=== PATIENT | male | born 1950 | race Two or more races ===

== ENCOUNTER 2019-12-25 06:43 | Emergency (ER) | payer OTHER ==
[2019-12-25] MEDS ORDERED: SODIUM CHLORIDE 1,000 ML IV SCH (07:00)
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
[2019-12-25 07:16] VITALS: BP 137/67; PULSE 84; TEMP 98; BMI 35.5
--- NOTE | 2019-12-25 07:16 | PDOC ---
History of Present Illness - General Stated Complaint: FEVER Time Seen by Provider: 12/25/19 07:14 History Source: Patient Exam Limitations: No Limitations - History of Present Illness Initial Comments: 12/25/19 08:13 69M with PMH of DM, HTN, and kidney stones presents to the ED with diarrhea of a few days. He reports fevers/chills, nausea w/o vomiting, and lower abdominal pain that's intermittent. He was seen at [place] [facility], and right sided colitis was suggested by abdominal CT scan. He was subsequently started on metronidazole and cipro. Denies cp, sob, hematochezia, melena, dysuria. PMH: as in HPI SH: see below Meds: see med list Allergies: NKDA Tob/Etoh/Rec drugs: neg x3 PCP: Dr. Ramone MENDOZA GENERAL/CONSTITUTIONAL: +fever/chills. No weakness. HEENT: No change in vision. No ear pain or discharge. No sore throat. CARDIOVASCULAR: No chest pain or shortness of breath RESPIRATORY: No cough, wheezing, or hemoptysis. GASTROINTESTINAL: +nausea, no vomiting, + diarrhea GENITOURINARY: No dysuria, frequency, or change in urination. MUSCULOSKELETAL: No joint or muscle swelling or pain. No neck or back pain. SKIN: No rash NEUROLOGIC: No headache, vertigo, loss of consciousness, or change in strength/sensation. ENDOCRINE: No increased thirst. No abnormal weight change HEMATOLOGIC/LYMPHATIC: No anemia, easy bleeding, or history of blood clots. ALLERGIC/IMMUNOLOGIC: No hives or skin allergy. PE GENERAL: Awake, alert, and fully oriented; no acute distress HEAD: No signs of trauma, normocephalic, atraumatic EYES: PERRLA, EOMI, sclera anicteric, conjunctiva clear ENT: Auricles normal inspection, hearing grossly normal, nares patent, moist mucosa, oropharynx clear without exudates. NECK: Normal ROM, supple, no LAD, JVD, or masses HEART: Regular rate and rhythm, normal S1/S2, no murmurs, rubs or gallops, peripheral pulses normal and equal bilaterally. LUNGS: No distress, speaks full sentences, clear to auscultation bilaterally ABDOMEN: Soft, nontender. No guarding, no rebound. No masses. neg Kohli, neg CVA tenderness EXTREMITIES: Normal inspection, Normal range of motion, no edema. No clubbing or cyanosis. NEUROLOGICAL: CNII-XII grossly intact. Normal speech, no focal sensorimotor deficits SKIN: Warm, Dry, normal turgor, no rashes or lesions noted Assessment and Plan 1. gastroenteritis 2. ACS r/o 3. diverticulitis Cholo Miller, PGY1 Emergency Medicine Past History - Medical History Allergies/Adverse Reactions: Allergies Allergy/AdvReac Type Severity Reaction Status Date / Time No Known Allergies Allergy Verified 04/30/15 20:10 Home Medications: Ambulatory Orders Amlodipine Besylate [Norvasc -] 5 mg PO DAILY 04/18/14 Benazepril HCl 40 mg PO DAILY 04/18/14 Amlodipine Besylate [Norvasc -] 10 mg PO DAILY 04/30/15 Cholecalciferol (Vitamin D3) [Vitamin D] 1,000 unit PO DAILY 04/30/15 Clopidogrel Bisulfate [Plavix -] 75 mg PO DAILY 04/30/15 Tamsulosin HCl [Flomax] 0.4 mg PO DAILY 04/30/15 metFORMIN HCL [Metformin HCl] 500 mg PO DAILY 04/30/15 Diabetes: Yes HTN: Yes (takes in afternoon) Hypercholesterolemia: Yes Kidney Stones: Yes - Immunization History Td Vaccination: (UNKNOWN) Immunization Up to Date: No - Psycho-Social/Smoking History Smoking Status: No Smoking History: Former smoker Have you smoked in the past 12 months: No Number of Cigarettes Smoked Daily: 0 If you are a former smoker, when did you quit?: 2001 Cigars Per Day: 0 ED Treatment Course - LABORATORY CBC & Chemistry Diagram: 12/25/19 07:00 12/25/19 07:00 Medical Decision Making - Medical Decision Making 12/25/19 08:18 69M with PMH of DM, HTN, and kidney stones presents to the ED with diarrhea of a few days. He reports fevers/chills, nausea w/o vomiting, and lower abdominal pain that's intermittent. He was seen at [place] ED, and right sided colitis was suggested by abdominal CT scan. He was subsequently started on metronidazole and cipro. On exam, abdomen was soft, nontender, was not ill appearing. EKG was nsr. Labs notable for: -negative UA -trop neg -CMP wnl -lactate wnl -CBC wnl Pt given 1L NS. ESR and CRP are mildly elevated, but is expected with suspected source of infection Pt advised to continue course of antibiotics and to follow up with PCP. Stable for d/c home. Discharge - Discharge Information Problems reviewed: Yes Clinical Impression/Diagnosis: Colitis Condition: Good Disposition: HOME - Admission No - Follow up/Referral Referrals: Howard Pack MD [Primary Care Provider] - - Patient Discharge Instructions Patient Printed Discharge Instructions: DI for Colitis Additional Instructions: You were seen in the ED for diarrhea and abdominal pain. In the ED you were evaluated with blood work. Your results were normal. There does not appear to be an acute need for immediate hospitalization. You are advised to follow up with your Primary Care Physician within 1 week. Continue taking metronidazole and ciprofloxacin as prescribed. Return to the ED immediately if you experience worsening abdominal pain, bloody stool, or inability to tolerate drinking fluids. - Post Discharge Activity
[2019-12-25 07:30] LABS: VENOUS O2 SATURATION 93.3 % (70-80); VENOUS PCO2 37.9 mmHg (38-52); VENOUS PH 7.423 (7.310-7.410)
[2019-12-25 07:36] LABS: BASO % 0.4 % (0-2.0); HEMATOCRIT 40.9 % (35.4-49); HEMOGLOBIN 13.8 GM/dL (11.7-16.9); LYMPH % 8.9 % (8-40); MCH 28.6 pg (25.7-33.7); MCHC 33.7 g/dl (32.0-35.9); MEAN CELL VOLUME 84.9 fl (80-96); MEAN PLT VOLUME 9.3 fl (7.5-11.1); MONO % 11.3 % (3.8-10.2); NEUT % 78.4 % (42.8-82.8); PLATELET COUNT 132 K/MM3 (134-434); RBC 4.82 M/mm3 (4.00-5.60); RDW 14.1 % (11.9-15.9); WHITE BLOOD COUNT 7.3 K/mm3 (4.0-10.0)
[2019-12-25 07:44] LABS: INR 1.18 (0.83-1.09)
[2019-12-25 07:47] LABS: ACTIVATED PTT 30.3 SECONDS (25.2-36.5)
[2019-12-25 08:02] LABS: ALBUMIN 3.6 g/dl (3.4-5.0); BILIRUBIN,TOTAL 0.9 mg/dL (0.2-1); BLOOD UREA NITROGEN 12.1 mg/dL (7-18); CALCIUM 8.6 mg/dL (8.5-10.1); CREATININE 1.1 mg/dL (0.55-1.3); EPI CELLS 7 /uL (0-25.1); HYALINE CASTS 2 /uL (0-3.1); PH,URINE 5.5 (5.0-8.0); POTASSIUM 3.8 mmol/L (3.5-5.1); TOT PROT 7.3 g/dl (6.4-8.2); URINE APPEARANCE CLEAR; URINE BACTERIA 5 /uL (0-1359); URINE BILIRUBIN NEGATIVE (NEGATIVE); URINE COLOR YELLOW; URINE GLUCOSE (UA) NEGATIVE (NEGATIVE); URINE KETONE TRACE (NEGATIVE); URINE LEUK ESTERASE TRACE (NEGATIVE); URINE NITRITE NEGATIVE (NEGATIVE); URINE PROTEIN TRACE (NEGATIVE); URINE RBC 55 /uL (0-23.9); URINE UROBILINOGEN 0.2 mg/dL (0.2-1.0); URINE WBC 5 /uL (0-25.8)
--- NOTE | 2019-12-25 08:20 | PDOC ---
Attending Attestation - Resident Resident Name: Cholo Miller - ED Attending Attestation I have performed the following: I have examined & evaluated the patient, The case was reviewed & discussed with the resident, I agree w/resident's findings & plan - HPI HPI: 12/25/19 08:14 69-year-old male with history of hypertension, diabetes, about 6 weeks postop cervical spine surgery at [facility] presents now for second evaluation of abdominal pain/diarrhea for 2 days. Symptoms began about 2 days ago, with crampy abdominal pain that was intermittent, worse prior to diarrhea, improved after diarrhea. Pain was diffuse, not persistent. There were associated fevers and chills and night sweats, no nausea or vomiting. He was seen yesterday at [facility], where he had a cervical spine surgery, and labs and CT abdomen and pelvis were performed and the patient was discharged home on Cipro and Flagyl with a diagnosis of gastroenteritis. Patient is now brought in by his daughter, and ER nurse, for further evaluation. Patient states he has taken 2 doses of his antibiotics so far, the diarrhea improved significantly, has had 2 episodes since last night. Nonbloody. No history of recurring GI illnesses, has had 2 colonoscopies in the past that were within normal limits, no abdominal surgical history. - Physicial Exam PE: 12/25/19 08:16 Vital signs stable Well-appearing in no acute distress tolerating liquids No jaundice or pallor, moist mucosa Heart is regular, lungs are clear Abdomen is soft/nondistended. nontender and no focal guarding/rebound. BS wnl. no cvat. no rash - Medical Decision Making 12/25/19 08:20 69y/o M 6wks postop cervical spine procedure with diarrhea/abdominal cramping/f/c. benign abdominal exam here without peritoneal findings, diagnosed with R-sided colitis yesterday and started on cipro/flagyl with improved symptoms and resolution of fever. Presentation consistent with colitis v diverticulitis, ? enteritis. non-septic appearing here. labs, ua, covid ivf will obtain CTAP report from yesterday. if confirms above, no indication to repeat today. likely continue abx given clinical/imaging diagnosis of colitis and improved sxs after abx. can attempt to obtain stool cultures reassess 12/25/19 08:44 no leukocytosis, chem wnl including lactate, ua clear. vitals stable, remains well appearing tolerating PO and receiving IV fluids. received CTAP results from confirming R sided colitis without complication. Would continue cipro/flagyl abx regimen, diet as tolerated. covid negative yesterday on pcr testing, repeated today and pending discussed with pt and daughter, agree with d/c plan and understand return criteria Heart Score/ECG Review #1 ECG reviewed & interpreted by me at: 07:33 General ECG Interpretation: Sinus Rhythm, Normal Rate (81), Normal Intervals (qtc 429), No acute ischemic changes Discharge - Discharge Information Problems reviewed: Yes Clinical Impression/Diagnosis: Colitis Condition: Good - Follow up/Referral Referrals: Howard Pack MD [Primary Care Provider] - - Patient Discharge Instructions - Post Discharge Activity
--- NOTE | 2019-12-25 09:38 | EKG ---
Test Reason : Blood Pressure : / mmHG Vent. Rate : 081 BPM Atrial Rate : 081 BPM P-R Int : 156 ms QRS Dur : 084 ms QT Int : 370 ms P-R-T Axes : 073 072 053 degrees QTc Int : 429 ms NORMAL SINUS RHYTHM NORMAL ECG WHEN COMPARED WITH ECG OF 28-JAN-2014 08:50, NO SIGNIFICANT CHANGE WAS FOUND Confirmed by Jaciel Tong ([id number]) on 12/25/2019 9:38:16 AM Referred By: Confirmed By:Jaciel Tong
== END 2019-12-25 10:39 | disposition home or self-care (01) ==
LOC: JER 06:43
DX: K52.9 Noninfective gastroenteritis and colitis, unspecified (principal)
CPT/HCPCS: 36415; 71045-TC-FY; 80053; 81003; 82803; 83605; 84484; 85025; 85610; 85651; 85730; 86140; 87040; 87045; 87046; 87086; 87177; 87186; 87209; 87324; 87449; 93005; 93010; 99285-25; U0003

== ENCOUNTER 2020-08-30 02:10 | Emergency (ER) | payer OTHER ==
[2020-08-30 02:43] VITALS: BP 161/77; PULSE 69; TEMP 97.8; BMI 35.5
== END 2020-08-30 03:04 | disposition home or self-care (01) ==
LOC: JER 02:10
DX: R04.0 Epistaxis (principal)
CPT/HCPCS: 99283-25

== ENCOUNTER 2020-12-22 10:19 | Emergency (ER) | payer OTHER ==
[2020-12-23 07:07] LABS: SARS-CoV-2 NAA Not Detected (Not Detected)
== END 2020-12-22 10:25 | disposition home or self-care (01) ==
LOC: JVIRT 10:19
DX: Z20.822 Contact with and (suspected) exposure to COVID-19 (principal)
CPT/HCPCS: C9803; Q3014-GT; U0003; U0005

== ENCOUNTER 2021-01-23 01:19 | Emergency (ER) | payer OTHER ==
[2021-01-23 02:02] VITALS: BP 150/84; PULSE 65; TEMP 97.6; BMI 29.0
== END 2021-01-23 02:08 | disposition left against medical advice (07) ==
LOC: JER 01:19
DX: I10 Essential (primary) hypertension (principal)
CPT/HCPCS: 99281-25

== ENCOUNTER 2021-01-24 12:13 | Emergency (ER) | payer OTHER ==
[2021-01-24 12:50] VITALS: BMI 36.6
[2021-01-24] MEDS ORDERED: MAG HYDROX/AL HYDROX/SIMETH -MYLANTA- ORAL SUSPENSION PO ONE (13:04)
[2021-01-24] MEDS ORDERED: FAMOTIDINE 20 MG/50 ML IVPB 20 MG/50 ML MG IVPB ONE ×2 (13:04→13:47)
[2021-01-24] MEDS ORDERED: MAG HYDROX/AL HYDROX/SIMETH 30 ML UNIT-DOSE CUP ONE (13:46)
[2021-01-24 14:04] VITALS: TEMP 98.2
[2021-01-24 14:25] LABS: BASO % 0.6 % (0-2.0); EOS % 2.1 % (0-4.5); HEMATOCRIT 42.4 % (35.4-49); HEMOGLOBIN 14.6 GM/dL (11.7-16.9); LYMPH % 17.6 % (8-40); MCH 29.4 pg (25.7-33.7); MCHC 34.4 g/dl (32.0-35.9); MEAN CELL VOLUME 85.4 fl (80-96); MEAN PLT VOLUME 9.6 fl (7.5-11.1); MONO % 8.8 % (3.8-10.2); NEUT % 70.9 % (42.8-82.8); PLATELET COUNT 166 10^3/uL (134-434); RBC 4.96 M/mm3 (4.00-5.60); RDW 13.4 % (11.9-15.9); WHITE BLOOD COUNT 6.1 K/mm3 (4.0-10.0)
[2021-01-24 14:55] LABS: CHLORIDE 105 mmol/L (98-107); SODIUM 136 mmol/L (136-145)
[2021-01-24 14:57] LABS: ANION GAP 3 MMOL/L (8-16); BLOOD UREA NITROGEN 21.8 mg/dL (7-18); CALCIUM 9.1 mg/dL (8.5-10.1); CO2 28 mmol/L (21-32)
[2021-01-24 14:58] LABS: GLUCOSE,RANDOM 141 mg/dL (74-106)
[2021-01-24 15:00] LABS: SGPT/ALT 41 U/L (13-61)
[2021-01-24 15:00] LABS: PH,URINE 5.5 (5.0-8.0); URINE APPEARANCE CLEAR; URINE BILIRUBIN NEGATIVE (NEGATIVE); URINE COLOR YELLOW; URINE GLUCOSE (UA) NEGATIVE (NEGATIVE); URINE KETONE NEGATIVE (NEGATIVE); URINE LEUK ESTERASE NEGATIVE (NEGATIVE); URINE NITRITE NEGATIVE (NEGATIVE); URINE PROTEIN NEGATIVE (NEGATIVE); URINE UROBILINOGEN 0.2 mg/dL (0.2-1.0)
[2021-01-24 15:01] LABS: CREATININE 1.4 mg/dL (0.55-1.3); SGOT/AST 37 U/L (15-37)
[2021-01-24 15:02] LABS: BILIRUBIN,TOTAL 0.8 mg/dL (0.2-1); TOT PROT 8.1 g/dl (6.4-8.2)
[2021-01-24 15:03] LABS: ALK PHOS 56 U/L (45-117)
[2021-01-24] MEDS ORDERED: SODIUM CHLORIDE 0.9% 500 ML INFUS.BAG IV ONE ×2 (15:16→15:19)
[2021-01-24 16:51] VITALS: BP 158/80; PULSE 61
== END 2021-01-24 16:53 | disposition home or self-care (01) ==
LOC: JER 12:13
PROC: 3E033NZ Introduction of Analgesics, Hypnotics, Sedatives into Peripheral Vein, Percutaneous Approach (ICD-10-PCS; principal; 2021-01-24)
DX: R14.0 Abdominal distension (gaseous) (principal); R19.7 Diarrhea, unspecified; R63.0 Anorexia
CPT/HCPCS: 36415; 71046-TC-FY; 80053; 81003; 82550; 82553; 84484; 85025; 87086; 93005; 93010; 99284-25

== ENCOUNTER 2021-04-11 11:38 | Emergency (ER) | payer OTHER ==
[2021-04-11 12:16] VITALS: BMI 32.8
[2021-04-11] MEDS ORDERED: SOTROVIMAB 500 MG in SODIUM CHLORIDE 100 ML IVPB ONE (12:22)
[2021-04-11 14:38] VITALS: BP 130/60; PULSE 78; TEMP 98
== END 2021-04-11 14:51 | disposition home or self-care (01) ==
LOC: JER 11:38
DX: U07.1 COVID-19 (principal)
CPT/HCPCS: 99284-25; M0247

== ENCOUNTER 2022-04-28 02:27 | Emergency (ER) | payer OTHER ==
[2022-04-28 02:48] VITALS: BP 156/79; PULSE 76; RESP 20; TEMP 97.9; BMI 34.7
[2022-04-28] MEDS ORDERED: SODIUM CHLORIDE 0.9% 500 ML INFUS.BAG IV ONE (03:43)
== END 2022-04-28 04:13 | disposition left against medical advice (07) ==
LOC: JER 02:27
DX: R19.7 Diarrhea, unspecified (principal); I10 Essential (primary) hypertension
CPT/HCPCS: 99283-25